=== PATIENT | male | born 1950 | race Two or more races ===

== ENCOUNTER 2023-02-20 03:50 | Inpatient (IN) | payer BC ==
[~2023-02-20] VITALS: Ht 180.3 cm; Wt 117.6 kg
[2023-02-20] VITALS (9 sets, daily range): BP systolic 124–130; BP diastolic 67–80; PULSE 79–96; RESP 18–21; TEMP 98.1–98.8; O2SAT 92–98
[2023-02-20] MEDS ORDERED: ACETAMINOPHEN 325 MG TAB PO PRN (06:15)
[2023-02-20] MEDS ORDERED: MORPHINE SULFATE INJ 2 MG/ml SYRG IV PRN (06:15)
[2023-02-20] MEDS ORDERED: IPRATROPIUM BROM 0.5 MG/2.5ML INH SOL NEB PRN (06:15)
[2023-02-20] MEDS ORDERED: DOCUSATE SOD 100 MG CAP PO PRN (06:15)
[2023-02-20] MEDS ORDERED: ONDANSETRON HCL 4 MG/2 ML VIAL IV PRN (06:15)
[2023-02-20] MEDS ORDERED: NITROGLYCERIN 0.4 MG SL TAB SL PRN (06:15)
[2023-02-20] MEDS ORDERED: SODIUM CHLORIDE 0.9% 1,000 ML IV SCH (06:15)
[2023-02-20] MEDS ORDERED: ALBUTEROL MEDNEB 2.5 mg/3ml NEB NEB PRN (07:30)
[2023-02-20] MEDS ORDERED: HYDR25TA4 PO (07:56)
[2023-02-20] MEDS ORDERED: SPIR25TA8 PO (07:56)
[2023-02-20] MEDS ORDERED: ALLO300T2 PO (07:56)
[2023-02-20] MEDS ORDERED: METO-158 PO (07:56)
[2023-02-20] MEDS ORDERED: PANT1INJ3 IV (07:56)
[2023-02-20] MEDS ORDERED: PREG75CA PO (07:56)
[2023-02-20] MEDS: cefTRIAXone 1GM/50ML D5W 50 ML IV SCH (08:31)
[2023-02-20] MEDS: chlordiazePOXIDE HCL 25 MG CAP PO PRN ×2 (08:32→17:48)
[2023-02-20] MEDS: METOPROLOL TARTRATE 50 MG TAB PO SCH (08:34)
[2023-02-20] MEDS: PANTOPRAZOLE 40 MG/10 ML VIAL INJ IV SCH (08:36)
[2023-02-20] MEDS ORDERED: methylPREDNISolone SOD SUCC 40 MG/ML VL IV SCH (10:00)
[2023-02-20] MEDS: AZITHROMYCIN 500MG/ 250ML 250 ML IV SCH (11:23)
[2023-02-20 11:39] LABS: Potassium 3.7 mmol/L (3.5-5.1)
[2023-02-20 11:41] LABS: Calcium 8.7 mg/dL (8.5-10.1)
[2023-02-20 11:46] LABS: BUN/Creatinine Ratio 9.1 (10.0-20.0)
[2023-02-20 11:48] LABS: Phosphorus 2.9 mg/dL (2.4-5.1)
[2023-02-20] MEDS: FOLIC ACID 1 MG, MULTIPLE VITAMIN 10 ML, MAGNESIUM SULF SDV 50% 8 MEQ, THIAMINE INJ 100... INJ SCH ×10 (12:00→13:43)
[2023-02-20 12:33] LABS: Magnesium 1.2 mg/dL (1.6-2.6)
[2023-02-20] MEDS ORDERED: ALBUTEROL MEDNEB 2.5 mg/3ml NEB NEB SCH (12:57)
[2023-02-20] MEDS ORDERED: IPRATROPIUM BROM 0.5 MG/2.5ML INH SOL NEB SCH (12:57)
[2023-02-20] MEDS: SODIUM CHLORIDE 0.9% 1,000 ML IV SCH (13:00)
[2023-02-20] MEDS: GABAPENTIN 300 MG CAP PO SCH ×2 (13:44→20:57)
[2023-02-20] MEDS: NICOTINE 14 MG/24HR TOPICAL PATCH TD SCH (13:45)
[2023-02-20] MEDS ORDERED: GABAPENTIN 300 MG CAP PO SCH (14:00)
[2023-02-20] MEDS ORDERED: ENOXAPARIN SOD 40 MG/0.4 ML SYRINGE SC SCH (15:00)
[2023-02-20] MEDS: methylPREDNISolone SOD SUCC 40 MG/ML VL IV SCH (17:52)
[2023-02-20] MEDS: IPRATROPIUM BROM 0.5 MG/2.5ML INH SOL NEB SCH ×2 (18:26→23:54)
[2023-02-20] MEDS: ALBUTEROL MEDNEB 2.5 mg/3ml NEB NEB SCH ×2 (18:27→23:54)
[2023-02-20] MEDS: traMADol HCL 50 MG TAB PO PRN (20:57)
[2023-02-21] VITALS (13 sets, daily range): BP systolic 113–138; BP diastolic 59–78; PULSE 75–109; RESP 18–20; TEMP 97.9–98.9; O2SAT 90–100
[2023-02-21] MEDS: chlordiazePOXIDE HCL 25 MG CAP PO PRN (01:06)
[2023-02-21] MEDS: methylPREDNISolone SOD SUCC 40 MG/ML VL IV SCH ×3 (01:06→22:06)
[2023-02-21] MEDS: GABAPENTIN 300 MG CAP PO SCH ×4 (01:06→20:44)
[2023-02-21] MEDS: SODIUM CHLORIDE 0.9% 1,000 ML IV SCH (03:18)
[2023-02-21 04:33] LABS: Basophils # (auto) 0 10 ^3/uL (0-0.2); Basophils % (auto) 0.3 % (0.0-2.0); Eosinophils # (auto) 0 10 ^3/uL (0-0.8); Hematocrit 33.9 % (41.0-53.0); Hemoglobin 11.5 g/dL (13.5-17.5); Lymphocytes # (auto) 0.7 10 ^3/uL (0.4-5.4); Lymphocytes % (auto) 8.3 % (10.0-50.0); Mean Corpuscular Hemoglobin 30.2 pg (28.0-32.0); Mean Corpuscular Hgb Conc. 33.9 g/dL (32.0-36.0); Mean Corpuscular Volume 89.1 fL (80.0-100.0); Monocytes # (auto) 0.5 10 ^3/uL (0-1.3); Monocytes % (auto) 6.7 % (0.0-12.0); Neutrophils # (auto) 6.8 10 ^3/uL (1.6-8.6); Neutrophils % (auto) 84.7 % (37.0-80.0); Red Cell Distribution Width 18.1 % (11.8-14.3)
[2023-02-21 04:47] LABS: Chloride 102 mmol/L (98-107); Potassium 3.8 mmol/L (3.5-5.1); Sodium 135 mmol/L (136-145)
[2023-02-21 04:48] LABS: Anion Gap 7 (5-15); Calcium 8.7 mg/dL (8.7-10.4); Carbon Dioxide 26 mmol/L (20-30)
[2023-02-21 04:53] LABS: BUN/Creatinine Ratio 13.6 (10.0-20.0); Blood Urea Nitrogen 8 mg/dL (9-23); Glucose 138 mg/dL (74-106)
[2023-02-21 05:08] LABS: INR 1.21 (0.9-1.15); Partial Thromboplastin Time 34.4 SEC (24.5-34.5); Prothrombin Time 12.5 sec (9.3-11.8)
[2023-02-21] MEDS: ALBUTEROL MEDNEB 2.5 mg/3ml NEB NEB SCH ×3 (06:08→19:37)
[2023-02-21] MEDS: IPRATROPIUM BROM 0.5 MG/2.5ML INH SOL NEB SCH ×3 (06:08→19:37)
[2023-02-21] MEDS: cefTRIAXone 1GM/50ML D5W 50 ML IV SCH (09:03)
[2023-02-21] MEDS: METOPROLOL TARTRATE 50 MG TAB PO SCH (09:56)
[2023-02-21] MEDS: NICOTINE 14 MG/24HR TOPICAL PATCH TD SCH (09:57)
[2023-02-21] MEDS: PANTOPRAZOLE 40 MG/10 ML VIAL INJ IV SCH (10:00)
[2023-02-21] MEDS: AZITHROMYCIN 500MG/ 250ML 250 ML IV SCH (10:09)
[2023-02-21] MEDS: traMADol HCL 50 MG TAB PO PRN (10:57)
[2023-02-21] MEDS: FOLIC ACID 1 MG, MULTIPLE VITAMIN 10 ML, MAGNESIUM SULF SDV 50% 8 MEQ, THIAMINE INJ 100... INJ SCH ×5 (12:03)
[2023-02-21] MEDS: DOXYCYCLINE 100 MG TAB/CAP PO SCH (22:06)
[2023-02-22] VITALS (13 sets, daily range): BP systolic 123–128; BP diastolic 72–76; PULSE 77–98; RESP 16–20; TEMP 97.6–98.3; O2SAT 93–99
[2023-02-22] MEDS: ALBUTEROL MEDNEB 2.5 mg/3ml NEB NEB SCH ×3 (00:11→11:38)
[2023-02-22] MEDS: IPRATROPIUM BROM 0.5 MG/2.5ML INH SOL NEB SCH ×4 (00:11→18:00)
[2023-02-22] MEDS: chlordiazePOXIDE HCL 25 MG CAP PO PRN ×2 (00:34→09:13)
[2023-02-22] MEDS: GABAPENTIN 300 MG CAP PO SCH ×3 (01:47→14:56)
[2023-02-22 05:47] LABS: Hemoglobin 11.7 g/dL (13.5-17.5); Mean Corpuscular Hemoglobin 29.8 pg (28.0-32.0); Red Blood Cells 3.91 10^6/uL (4.5-5.90); White Blood Cell 8.8 10^3/uL (4.4-10.8)
[2023-02-22 05:58] LABS: Anion Gap 6 (5-15); Calcium 8.9 mg/dL (8.7-10.4); Carbon Dioxide 26 mmol/L (20-30); Chloride 105 mmol/L (98-107); Potassium 4.2 mmol/L (3.5-5.1); Sodium 137 mmol/L (136-145)
[2023-02-22 06:04] LABS: BUN/Creatinine Ratio 21.6 (10.0-20.0); Blood Urea Nitrogen 16 mg/dL (9-23); Glucose 137 mg/dL (74-106)
[2023-02-22 06:34] LABS: Basophils # (auto) 0 10 ^3/uL (0-0.2); Eosinophils # (auto) 0 10 ^3/uL (0-0.8); Hematocrit 34.8 % (41.0-53.0); Lymphocytes # (auto) 0.6 10 ^3/uL (0.4-5.4); Lymphocytes % (auto) 6.7 % (10.0-50.0); Mean Corpuscular Hgb Conc. 33.5 g/dL (32.0-36.0); Monocytes # (auto) 0.5 10 ^3/uL (0-1.3); Neutrophils # (auto) 7.6 10 ^3/uL (1.6-8.6); Neutrophils % (auto) 87.3 % (37.0-80.0); Red Cell Distribution Width 18.5 % (11.8-14.3)
[2023-02-22] MEDS: DOXYCYCLINE 100 MG TAB/CAP PO SCH (09:11)
[2023-02-22] MEDS: HYDROcodone-ACET 5/325MG TAB PO PRN ×2 (09:11→15:01)
[2023-02-22] MEDS: METOPROLOL TARTRATE 50 MG TAB PO SCH (09:13)
[2023-02-22] MEDS: methylPREDNISolone SOD SUCC 40 MG/ML VL IV SCH (09:14)
[2023-02-22] MEDS: NICOTINE 14 MG/24HR TOPICAL PATCH TD SCH (09:15)
[2023-02-22] MEDS ORDERED: PANTOPRAZOLE 40 MG TAB PO SCH (10:00)
[2023-02-22] MEDS ORDERED: MULTIPLE VITAMIN TAB PO ONE (12:00)
[2023-02-22 15:04] LABS: COVID19 ANTIGEN SOFIA FIA NEGATIVE (NEGATIVE)
[2023-02-22] MEDS ORDERED: GABA-1250 PO (17:22)
[2023-02-22] MEDS ORDERED: PRED20TA2 PO (17:22)
[2023-02-22] MEDS ORDERED: IPRA0.00 IN (17:22)
[2023-02-22] MEDS ORDERED: DOXY-448 PO (17:22)
[2023-02-22] MEDS ORDERED: PANT40T PO (17:22)
[2023-02-23] MEDS ORDERED: MULTIPLE VITAMIN TAB PO SCH (10:00)
== END 2023-02-22 18:20 | disposition home health service (06) | DRG 190 ==
LOC: UNDOADMIN 05:45 → TELE-CENTR 05:45
PROVIDERS: ADMIT Nurse Practitioner Family; ATTEND Hospitalist
DX: J44.1 Chronic obstructive pulmonary disease with (acute) exacerbation (principal); J18.9 Pneumonia, unspecified organism; J96.10 Chronic respiratory failure, unspecified whether with hypoxia or hypercapnia; F10.239 Alcohol dependence with withdrawal, unspecified; J44.0 Chronic obstructive pulmonary disease with (acute) lower respiratory infection; I11.0 Hypertensive heart disease with heart failure; Z20.822 Contact with and (suspected) exposure to COVID-19; F17.210 Nicotine dependence, cigarettes, uncomplicated; I50.9 Heart failure, unspecified; Z99.81 Dependence on supplemental oxygen; Z79.899 Other long term (current) drug therapy; Z80.0 Family history of malignant neoplasm of digestive organs; Z82.0 Family history of epilepsy and other diseases of the nervous system; Z71.6 Tobacco abuse counseling
CPT/HCPCS: 36415; 80048; 80069; 83735; 85025; 85049; 85610; 85730; 87426; 94640; 97110; 97116; 97163; 97530; C9113; G0378; J0696

== ENCOUNTER 2023-06-28 11:11 | Inpatient (IN) | payer BC ==
[~2023-06-28] VITALS: Ht 177.8 cm; Wt 120.9 kg
[~2023-06-28 11:11] MED LIST: ALLO300T2 PO; DOXY-448 PO; GABA-1250 PO; IPRA0.00 IN; METO-158 PO; PANT40T PO; PRED20TA2 PO; PREG75CA PO; SPIR25TA8 PO
[2023-06-28] MEDS: dilTIAZem 25 MG/5 ML VIAL IV ONE (11:28)
[2023-06-28] MEDS ORDERED: PANTOPRAZOLE 40mg/50ML NS AE 50 ML IV ONE (11:30)
[2023-06-28 11:44] LABS: Basophils # (auto) 0.1 10 ^3/uL (0-0.2); Eosinophils # (auto) 0.1 10 ^3/uL (0-0.8); Hemoglobin 10.5 g/dL (13.5-17.5); Nucleated Red Blood Cells % 0.1 %; Red Cell Distribution Width 18.8 % (11.8-14.3)
[2023-06-28 11:46] LABS: Basophils % (auto) 1.4 % (0.0-2.0); Eosinophils % (auto) 0.9 % (0.0-7.0); Hematocrit 32.1 % (41.0-53.0); Lymphocytes # (auto) 1.3 10 ^3/uL (0.4-5.4); Lymphocytes % (auto) 14.1 % (10.0-50.0); Mean Corpuscular Hemoglobin 27.3 pg (28.0-32.0); Mean Corpuscular Hgb Conc. 32.6 g/dL (32.0-36.0); Mean Corpuscular Volume 83.7 fL (80.0-100.0); Monocytes # (auto) 1.3 10 ^3/uL (0-1.3); Neutrophils # (auto) 6.5 10 ^3/uL (1.6-8.6); Neutrophils % (auto) 69.6 % (37.0-80.0); Red Blood Cells 3.84 10^6/uL (4.5-5.90); White Blood Cell 9.4 10^3/uL (4.4-10.8)
[2023-06-28 11:52] LABS: Base Excess -1.9 mmol/L (-2.0-2.0)
[2023-06-28 12:00] VITALS: PULSE 126; RESP 18; O2SAT 97
[2023-06-28] MEDS ORDERED: dilTIAZem 125mg/125ml BAG KIT 125 ML IV ONE (12:00)
[2023-06-28] MEDS: SODIUM CHLORIDE 0.9% 500 ML IV ONE ×2 (12:00→23:00)
[2023-06-28 12:01] LABS: Alanine Aminotransferase 13 U/L (7-40); Albumin 3.5 g/dL (3.2-4.8); Alkaline Phosphatase 61 U/L (46-116); Anion Gap 6 (5-15); Aspartate Aminotransferase 28 U/L (13-40); BUN/Creatinine Ratio 34.6 (10.0-20.0); Bilirubin, Direct 0.8 mg/dL (<0.3); Bilirubin, Total 1.4 mg/dL (0.2-1.0); Blood Urea Nitrogen 28 mg/dL (9-23); Calcium 8.5 mg/dL (8.5-10.1); Carbon Dioxide 24 mmol/L (20-30); Chloride 108 mmol/L (98-107); Glucose 125 mg/dL (74-106); Potassium 4.5 mmol/L (3.5-5.1); Sodium 138 mmol/L (136-145); Total Protein 5.5 g/dL (5.7-8.2)
[2023-06-28 12:09] LABS: Acetaminophen < 2.0 UG/ML (10.0-20.0); Lipase 82 U/L (12-53)
[2023-06-28 12:10] LABS: Salicylate < 3.0 mg/dL (2.8-20.0)
[2023-06-28 12:51] LABS: Free T3 3.09 pg/mL (2.3-4.2); Free T4 (Free Thyroxine) 1.02 ng/dL (0.89-1.76)
[2023-06-28] MEDS: ONDANSETRON HCL 4 MG/2 ML VIAL IV ONE (14:15)
[2023-06-28] MEDS: ONDANSETRON HCL 4 MG/2 ML VIAL ONE (14:17)
[2023-06-28] MEDS: OCTREOTIDE ACETATE 100 MCG in SODIUM CHL 0.9% 50 ML IV ONE (14:25)
[2023-06-28 14:49] LABS: INR 1.4 (0.9-1.15); Prothrombin Time 14.4 sec (9.3-11.8)
[2023-06-28] MEDS ORDERED: NITROGLYCERIN 0.4 MG SL TAB SL PRN (15:00)
[2023-06-28] MEDS: PANTOPRAZOLE 40mg/50ML NS AE 50 ML IV SCH (15:00)
[2023-06-28] MEDS ORDERED: MORPHINE SULFATE INJ 2 MG/ml SYRG IV PRN ×2 (15:00)
[2023-06-28] MEDS: OCTREOTIDE ACETATE 500 MCG in SODIUM CHL 0.9% 99 ML IV SCH (15:13)
[2023-06-28] MEDS: PANTOPRAZOLE 80 MG in SODIUM CHL 0.9% 100 ML IV ONE (15:13)
[2023-06-28 15:19] LABS: Hematocrit 31.3 % (41.0-53.0); Hemoglobin 10.3 g/dL (13.5-17.5)
[2023-06-28] MEDS: dilTIAZem 125mg/125ml BAG KIT 125 ML IV SCH (15:26)
[2023-06-28] MEDS: SODIUM CHLORIDE 0.9% 1,000 ML IV ONE (18:40)
[2023-06-28] MEDS: levoFLOXacin 750MG 150 ML IV ONE (18:40)
[2023-06-28 21:17] LABS: Hematocrit 30.5 % (41.0-53.0); Hemoglobin 9.8 g/dL (13.5-17.5)
[2023-06-28 22:10] VITALS: PULSE 138; RESP 21; O2SAT 89
[2023-06-28] MEDS: NOREPINEPHRINE 8 MG/250ML KIT 250 ML IV SCH (22:57)
[2023-06-28] MEDS: NOREPINEPHRINE 8 MG/250ML KIT 250 ML IV ONE (23:00)
[2023-06-28] MEDS: OCTREOTIDE ACETATE 500 MCG/ML VL ONE (23:00)
[2023-06-28 23:03] LABS: Hemoglobin 8.4 g/dL (13.5-17.5)
[2023-06-28] MEDS: ONDANSETRON HCL 4 MG/2 ML VIAL IV PRN (23:24)
[2023-06-28] MEDS: VASOPRESSIN 20 UNIT/ML ONE (23:46)
[2023-06-29] VITALS (39 sets, daily range): BP systolic 91–163; BP diastolic 41–97; PULSE 116–130; RESP 13–21; TEMP 97.3–98.8; O2SAT 91–99
[2023-06-29] MEDS: ALBUMIN 25% 100 ML IV ONE (00:02)
[2023-06-29] MEDS: METOCLOPRAMIDE HCL 5MG/ml INJ 2ml VIAL IV SCH (00:02)
[2023-06-29] MEDS: SODIUM CHLORIDE 0.9% 1,000 ML IV ONE (00:02)
[2023-06-29] MEDS: VASOPRESSIN 20 UNITS in SODIUM CHL 0.9% 99 ML IV SCH (00:48)
[2023-06-29] MEDS: D5W/SOD CHLO 0.9% 1,000 ML IV SCH (01:00)
[2023-06-29] MEDS: METOCLOPRAMIDE HCL 5MG/ml INJ 2ml VIAL IV PRN (01:24)
[2023-06-29 04:43] LABS: Hemoglobin 7.5 g/dL (13.5-17.5)
[2023-06-29 04:46] LABS: Hematocrit 23.2 % (41.0-53.0); Mean Corpuscular Hgb Conc. 32.2 g/dL (32.0-36.0); Mean Corpuscular Volume 83.8 fL (80.0-100.0); Red Blood Cells 2.77 10^6/uL (4.5-5.90); Red Cell Distribution Width 19.2 % (11.8-14.3); White Blood Cell 27.8 10^3/uL (4.4-10.8)
[2023-06-29] MEDS: PHENYLEPHRINE IV 250 ML IV SCH (04:49)
[2023-06-29] MEDS: METOPROLOL TARTRATE 1MG/1ML-5ML VIAL IV ONE (04:49)
[2023-06-29] MEDS: PHENYLEPHRINE IV 250 ML IV ONE (04:50)
[2023-06-29 05:01] LABS: Alanine Aminotransferase 11 U/L (7-40); Albumin 3.1 g/dL (3.2-4.8); Alkaline Phosphatase 41 U/L (46-116); Anion Gap 8 (5-15); Aspartate Aminotransferase 28 U/L (13-40); BUN/Creatinine Ratio 37.3 (10.0-20.0); Bilirubin, Total 2.5 mg/dL (0.2-1.0); Blood Urea Nitrogen 31 mg/dL (9-23); Calcium 7.7 mg/dL (8.7-10.4); Carbon Dioxide 21 mmol/L (20-30); Chloride 111 mmol/L (98-107); Glucose 187 mg/dL (74-106); Potassium 4.8 mmol/L (3.5-5.1); Sodium 140 mmol/L (136-145)
[2023-06-29 05:03] LABS: Band Neutrophils % (manual) 0; Basophils % (manual) 0 (0.0-2.0); Blast Cells 0; Eosinophils % (manual) 0 (0-7); Metamyelocytes % 0; Myelocytes % 0; Promyelocytes % 0; Reactive Lymphocytes 0
[2023-06-29 06:33] LABS: Lymphocytes % (manual) 8 (10.0-50.0); Monocytes % (manual) 3 (0-12); Platelet Estimate Adequate
[2023-06-29 06:36] LABS: Urine Bacteria NONE SEEN /hpf (None Seen); Urine Blood Negative /uL (Negative); Urine Clarity Clear (Clear); Urine Color Yellow (Yellow); Urine Hyaline Cast FEW /lpf (0 - 2); Urine Protein, UAD TRACE (Negative); Urine Specific Gravity 1.021 (1.001-1.035); Urine WBC 1 /hpf (0 - 3)
[2023-06-29 06:46] LABS: Amphetamine Screen, Urine Neg (NEGATIVE); Barbiturate Scree,Urine Neg (NEGATIVE); Benzodiazephine Screen, Urine Neg (NEGATIVE); Cannabinoid Screen, Urine Neg (NEGATIVE); Cocaine Screen, Urine Neg (NEGATIVE); Opiate Scree,Urine Neg (NEGATIVE); Phencyclidine Screen, Urine Neg (NEGATIVE)
[2023-06-29] MEDS: PIPERACILLIN-TAZOB 3.375GM 100 ML IV SCH (06:54)
[2023-06-29 09:10] LABS: Hematocrit 23.7 % (41.0-53.0); Hemoglobin 7.7 g/dL (13.5-17.5)
[2023-06-29] MEDS: LORazepam 2MG/ML-1ML VIAL IV PRN (09:29)
[2023-06-29] MEDS ORDERED: MIDAZOLAM HCL 2MG/2ML 2ml VIAL (1mg/ml) ONE (16:36)
[2023-06-29] MEDS ORDERED: PHENYLEPHRINE HCL 10 MG/ML VL IV ONE (16:40)
[2023-06-29] MEDS ORDERED: KETAMINE 50mg/ML 10ml Vial 10 ML ONE (16:49)
[2023-06-29] MEDS ORDERED: ONDANSETRON HCL 4 MG/2 ML VIAL ONE (17:22)
[2023-06-29] MEDS ORDERED: ONDANSETRON HCL 4 MG/2 ML VIAL IV PRN (17:45)
[2023-06-29] MEDS ORDERED: LIDOCAINE HCL 100 MG/5ML (2%) SYRG INJ IV ONE (17:52)
[2023-06-29] MEDS ORDERED: PROPOFOL 10 MG/ML 20 ML IV ONE (17:52)
[2023-06-29 19:27] LABS: Basophils # (auto) 0.1 10 ^3/uL (0-0.2); Basophils % (auto) 1.2 % (0.0-2.0); Eosinophils # (auto) 0.2 10 ^3/uL (0-0.8); Lymphocytes # (auto) 1.5 10 ^3/uL (0.4-5.4); Monocytes # (auto) 1.1 10 ^3/uL (0-1.3); Neutrophils # (auto) 8.7 10 ^3/uL (1.6-8.6); White Blood Cell 11.6 10^3/uL (4.4-10.8)
[2023-06-29 19:29] LABS: Eosinophils % (auto) 1.4 % (0.0-7.0); Hematocrit 23.8 % (41.0-53.0); Hemoglobin 7.8 g/dL (13.5-17.5); Lymphocytes % (auto) 13.1 % (10.0-50.0); Mean Corpuscular Hemoglobin 27.7 pg (28.0-32.0); Mean Corpuscular Hgb Conc. 32.8 g/dL (32.0-36.0); Mean Corpuscular Volume 84.6 fL (80.0-100.0); Monocytes % (auto) 9.5 % (0.0-12.0); Neutrophils % (auto) 74.8 % (37.0-80.0); Nucleated Red Blood Cells % 0.1 %; Red Blood Cells 2.81 10^6/uL (4.5-5.90); Red Cell Distribution Width 18.1 % (11.8-14.3)
[2023-06-29 19:48] LABS: Alanine Aminotransferase 10 U/L (7-40); Alkaline Phosphatase 39 U/L (46-116); Anion Gap 5 (5-15); Aspartate Aminotransferase 30 U/L (13-40); BUN/Creatinine Ratio 30.3 (10.0-20.0); Blood Urea Nitrogen 20 mg/dL (9-23); Calcium 7.6 mg/dL (8.7-10.4); Carbon Dioxide 24 mmol/L (20-30); Chloride 114 mmol/L (98-107); Glucose 139 mg/dL (74-106); Sodium 143 mmol/L (136-145)
[2023-06-29 19:49] LABS: Albumin 3.1 g/dL (3.2-4.8); Bilirubin, Total 2.1 mg/dL (0.2-1.0); Total Protein 4.9 g/dL (5.7-8.2)
[2023-06-30] VITALS (97 sets, daily range): BP systolic 92–171; BP diastolic 39–138; PULSE 114–140; RESP 13–31; TEMP 98.1–99.3; O2SAT 76–99
[2023-06-30 06:19] LABS: Basophils # (auto) 0 10 ^3/uL (0-0.2); Hemoglobin 7.9 g/dL (13.5-17.5); Monocytes # (auto) 0.6 10 ^3/uL (0-1.3); Nucleated Red Blood Cells % 0.1 %
[2023-06-30 06:21] LABS: Basophils % (auto) 0.5 % (0.0-2.0); Eosinophils # (auto) 0.1 10 ^3/uL (0-0.8); Eosinophils % (auto) 2.5 % (0.0-7.0); Hematocrit 23.6 % (41.0-53.0); Lymphocytes % (auto) 18.4 % (10.0-50.0); Mean Corpuscular Hemoglobin 29.1 pg (28.0-32.0); Mean Corpuscular Hgb Conc. 33.6 g/dL (32.0-36.0); Mean Corpuscular Volume 86.4 fL (80.0-100.0); Monocytes % (auto) 10.8 % (0.0-12.0); Neutrophils # (auto) 3.8 10 ^3/uL (1.6-8.6); Neutrophils % (auto) 67.8 % (37.0-80.0); Red Blood Cells 2.73 10^6/uL (4.5-5.90); Red Cell Distribution Width 17.3 % (11.8-14.3); White Blood Cell 5.6 10^3/uL (4.4-10.8)
[2023-06-30 06:37] LABS: Chloride 113 mmol/L (98-107); Potassium 3.8 mmol/L (3.5-5.1); Sodium 143 mmol/L (136-145)
[2023-06-30 06:38] LABS: Anion Gap 4 (5-15); Calcium 7.5 mg/dL (8.7-10.4); Carbon Dioxide 26 mmol/L (20-30)
[2023-06-30 06:43] LABS: BUN/Creatinine Ratio 22.4 (10.0-20.0); Blood Urea Nitrogen 13 mg/dL (9-23); Glucose 114 mg/dL (74-106)
[2023-06-30 07:21] LABS: Platelet Estimate Decreased
[2023-06-30] MEDS ORDERED: HYDR25TA4 PO (17:53)
[2023-06-30] MEDS: chlordiazePOXIDE HCL 5 MG CAP PO SCH (18:14)
[2023-06-30] MEDS: FUROSEMIDE 20 MG/2 ML VIAL IV ONE (18:14)
[2023-06-30] MEDS: FOLIC ACID 1 MG, MAGNESIUM SULF SDV 50% 8 MEQ, MULTIPLE VITAMIN 10 ML, THIAMINE INJ 100... INJ SCH (18:47)
[2023-06-30 19:59] LABS: % Iron Saturation 34.1 % (20-55)
[2023-06-30] MEDS: METOPROLOL TARTRATE 1MG/1ML-5ML VIAL IV ONE (20:50)
[2023-06-30] MEDS: PANTOPRAZOLE 40 MG/10 ML VIAL INJ IV SCH (20:53)
[2023-07-01] VITALS (31 sets, daily range): BP systolic 96–135; BP diastolic 45–91; PULSE 65–139; RESP 14–23; TEMP 97.8–99.3; O2SAT 91–98
[2023-07-01] MEDS: METOPROLOL TARTRATE 1MG/1ML-5ML VIAL IV PRN ×2 (02:25→10:16)
[2023-07-01 05:51] LABS: Basophils # (auto) 0 10 ^3/uL (0-0.2); Basophils % (auto) 0.7 % (0.0-2.0); Eosinophils # (auto) 0.2 10 ^3/uL (0-0.8); Eosinophils % (auto) 2.9 % (0.0-7.0); Hematocrit 31.2 % (41.0-53.0); Hemoglobin 10.4 g/dL (13.5-17.5); Lymphocytes % (auto) 16.1 % (10.0-50.0); Mean Corpuscular Hemoglobin 28.8 pg (28.0-32.0); Mean Corpuscular Hgb Conc. 33.3 g/dL (32.0-36.0); Mean Corpuscular Volume 86.4 fL (80.0-100.0); Monocytes # (auto) 0.5 10 ^3/uL (0-1.3); Neutrophils # (auto) 4.3 10 ^3/uL (1.6-8.6); Neutrophils % (auto) 71.3 % (37.0-80.0); Nucleated Red Blood Cells % 0.1 %; Red Blood Cells 3.61 10^6/uL (4.5-5.90); Red Cell Distribution Width 16.9 % (11.8-14.3); White Blood Cell 6.1 10^3/uL (4.4-10.8)
[2023-07-01 06:09] LABS: Alanine Aminotransferase 14 U/L (7-40); Albumin 3.1 g/dL (3.2-4.8); Alkaline Phosphatase 46 U/L (46-116); Anion Gap 4 (5-15); Aspartate Aminotransferase 39 U/L (13-40); BUN/Creatinine Ratio 13.6 (10.0-20.0); Blood Urea Nitrogen 8 mg/dL (9-23); Calcium 7.7 mg/dL (8.7-10.4); Carbon Dioxide 27 mmol/L (20-30); Chloride 109 mmol/L (98-107); Glucose 99 mg/dL (74-106); Magnesium 1.3 mg/dL (1.6-2.6); Potassium 3.4 mmol/L (3.5-5.1); Sodium 140 mmol/L (136-145)
[2023-07-01] MEDS: THIAMINE 100mg/ml INJ (200mg/2ml VIAL) IV SCH (10:16)
[2023-07-01] MEDS: cefTRIAXone 1GM/50ML D5W 50 ML IV SCH (10:17)
[2023-07-01] MEDS: ALBUTEROL SULF 2.5 MG/0.5ML(0.5%) NEB SOLN NEB SCH (10:46)
[2023-07-01] MEDS: IPRATROPIUM BROM 0.5 MG/2.5ML INH SOL NEB SCH (10:46)
[2023-07-01] MEDS ORDERED: IRON SUCROSE COMPLEX 100 ML IV SCH (12:00)
[2023-07-01] MEDS: MAGNESIUM SULFATE 1GM/100ML 100 ML IV ONE (17:10)
[2023-07-01] MEDS: POTASSIUM CHL 20 Meq TABLET PO ONE (17:10)
[2023-07-01] MEDS: MAGNESIUM SULFATE 1GM/100ML 100 ML IV SCH (17:10)
[2023-07-01] MEDS: PREGABALIN CAPSULE 75 MG CAP PO SCH (20:34)
[2023-07-01] MEDS: PROPRANOLOL HCL 20 MG TAB PO SCH (20:34)
[2023-07-01] MEDS: GABAPENTIN 300 MG CAP PO SCH (20:35)
[2023-07-02] VITALS (7 sets, daily range): BP systolic 102–126; BP diastolic 53–67; PULSE 59–125; RESP 18–20; TEMP 98–99; O2SAT 91–95
[2023-07-02 05:51] LABS: Hematocrit 31.2 % (41.0-53.0); Hemoglobin 10.4 g/dL (13.5-17.5)
[2023-07-02 05:59] LABS: Chloride 107 mmol/L (98-107); Potassium 3.8 mmol/L (3.5-5.1); Sodium 137 mmol/L (136-145)
[2023-07-02 06:00] LABS: Anion Gap 4 (5-15); Carbon Dioxide 26 mmol/L (20-30)
[2023-07-02 06:01] LABS: Calcium 8.1 mg/dL (8.7-10.4)
[2023-07-02 06:05] LABS: Glucose 89 mg/dL (74-106)
[2023-07-02 06:06] LABS: BUN/Creatinine Ratio 11.3 (10.0-20.0); Blood Urea Nitrogen 6 mg/dL (9-23); Magnesium 1.9 mg/dL (1.6-2.6)
[2023-07-02] MEDS: ALLOPURINOL 300 MG TAB PO SCH (10:00)
[2023-07-02] MEDS: NICOTINE 21MG/24 HR TOPICAL PATCH TD SCH (10:06)
[2023-07-03] VITALS (8 sets, daily range): BP systolic 90–125; BP diastolic 47–71; PULSE 64–125; RESP 18–20; TEMP 98–99.8; O2SAT 90–97
[2023-07-03] MEDS: SODIUM CHLORIDE 0.9% 500 ML IV ONE (01:25)
[2023-07-03 01:44] LABS: Basophils # (auto) 0.1 10 ^3/uL (0-0.2); Basophils % (auto) 0.5 % (0.0-2.0); Eosinophils # (auto) 0.3 10 ^3/uL (0-0.8); Eosinophils % (auto) 2.6 % (0.0-7.0); Hematocrit 31.7 % (41.0-53.0); Hemoglobin 10.4 g/dL (13.5-17.5); Lymphocytes # (auto) 1.4 10 ^3/uL (0.4-5.4); Lymphocytes % (auto) 14.3 % (10.0-50.0); Mean Corpuscular Hemoglobin 28.9 pg (28.0-32.0); Mean Corpuscular Hgb Conc. 32.9 g/dL (32.0-36.0); Mean Corpuscular Volume 87.9 fL (80.0-100.0); Monocytes # (auto) 1.2 10 ^3/uL (0-1.3); Monocytes % (auto) 12.2 % (0.0-12.0); Neutrophils # (auto) 7.1 10 ^3/uL (1.6-8.6); Neutrophils % (auto) 70.4 % (37.0-80.0); Nucleated Red Blood Cells % 0.2 %; Red Cell Distribution Width 17.3 % (11.8-14.3); White Blood Cell 10.1 10^3/uL (4.4-10.8)
[2023-07-03 01:59] LABS: Alanine Aminotransferase 11 U/L (7-40); Alkaline Phosphatase 53 U/L (46-116); Anion Gap 6 (5-15); Aspartate Aminotransferase 28 U/L (13-40); BUN/Creatinine Ratio 10.3 (10.0-20.0); Blood Urea Nitrogen 6 mg/dL (9-23); Calcium 8.3 mg/dL (8.7-10.4); Carbon Dioxide 27 mmol/L (20-30); Chloride 107 mmol/L (98-107); Glucose 93 mg/dL (74-106); Magnesium 1.6 mg/dL (1.6-2.6); Potassium 3.8 mmol/L (3.5-5.1); Sodium 140 mmol/L (136-145)
[2023-07-03 02:00] LABS: Bilirubin, Total 1.4 mg/dL (0.2-1.0); Total Protein 4.8 g/dL (5.7-8.2)
[2023-07-03 06:54] LABS: Basophils # (auto) 0.1 10 ^3/uL (0-0.2); Basophils % (auto) 0.7 % (0.0-2.0); Eosinophils # (auto) 0.2 10 ^3/uL (0-0.8); Hemoglobin 10.5 g/dL (13.5-17.5); Lymphocytes # (auto) 1.1 10 ^3/uL (0.4-5.4); Mean Corpuscular Hemoglobin 29.3 pg (28.0-32.0); Mean Corpuscular Hgb Conc. 32.9 g/dL (32.0-36.0); Mean Corpuscular Volume 88.9 fL (80.0-100.0); Monocytes # (auto) 1.2 10 ^3/uL (0-1.3); Monocytes % (auto) 13.4 % (0.0-12.0); Neutrophils # (auto) 6.5 10 ^3/uL (1.6-8.6); Neutrophils % (auto) 71.9 % (37.0-80.0); Nucleated Red Blood Cells % 0.1 %; Red Cell Distribution Width 17.2 % (11.8-14.3)
[2023-07-03 07:04] LABS: Chloride 108 mmol/L (98-107); Potassium 3.7 mmol/L (3.5-5.1); Sodium 139 mmol/L (136-145)
[2023-07-03 07:05] LABS: Anion Gap 4 (5-15); Carbon Dioxide 27 mmol/L (20-30)
[2023-07-03 07:10] LABS: BUN/Creatinine Ratio 10.2 (10.0-20.0); Blood Urea Nitrogen 6 mg/dL (9-23); Glucose 113 mg/dL (74-106)
[2023-07-03] MEDS: ALLOPURINOL 100 MG TAB PO SCH (10:21)
[2023-07-03] MEDS: MIDODRINE HCL 10 MG TAB PO SCH (21:43)
[2023-07-04] VITALS (10 sets, daily range): BP systolic 97–120; BP diastolic 45–77; PULSE 64–124; RESP 16–20; TEMP 98.1–99.8; O2SAT 64–95
[2023-07-04 00:14] LABS: Urine Bacteria NONE SEEN /hpf (None Seen); Urine Blood 1+ /uL (Negative); Urine Clarity Clear (Clear); Urine Color Yellow (Yellow); Urine Mucus FEW (None Seen); Urine Protein, UAD Negative (Negative); Urine Specific Gravity 1.015 (1.001-1.035); Urine Urobilinogen Normal (Negative); Urine WBC 4 /hpf (0 - 3)
[2023-07-04] MEDS ORDERED: PANT40T PO (10:49)
[2023-07-04] MEDS ORDERED: PROP1TAB53 PO (10:49)
[2023-07-04] MEDS ORDERED: GABA-1250 PO (10:49)
[2023-07-04] MEDS ORDERED: chlordiazePOXIDE HCL 5 MG CAP PO SCH (22:00)
== END 2023-07-04 20:44 | disposition home health service (06) | DRG 432 ==
LOC: ER 11:11 → EDBD 11:11 → TELE 14:55 → ICU WEST 06-29 18:43 → TELE-WESTW 07-01 17:40
PROVIDERS: ADMIT Hospitalist; ATTEND Hospitalist
PROC: 06HY33Z Insertion of Infusion Device into Lower Vein, Percutaneous Approach (ICD-10-PCS; 2023-06-28)
PROC: 06L38CZ Occlusion of Esophageal Vein with Extraluminal Device, Via Natural or Artificial Opening Endoscopic (ICD-10-PCS; 2023-06-29)
PROC: 30233N1 Transfusion of Nonautologous Red Blood Cells into Peripheral Vein, Percutaneous Approach (ICD-10-PCS; principal; 2023-06-29 16:35)
DX: K70.30 Alcoholic cirrhosis of liver without ascites (principal); I21.4 Non-ST elevation (NSTEMI) myocardial infarction; K29.21 Alcoholic gastritis with bleeding; I85.11 Secondary esophageal varices with bleeding; J18.9 Pneumonia, unspecified organism; J96.01 Acute respiratory failure with hypoxia; K85.90 Acute pancreatitis without necrosis or infection, unspecified; I47.10 Supraventricular tachycardia, unspecified; J44.0 Chronic obstructive pulmonary disease with (acute) lower respiratory infection; J44.1 Chronic obstructive pulmonary disease with (acute) exacerbation; D64.9 Anemia, unspecified; D69.6 Thrombocytopenia, unspecified; F17.200 Nicotine dependence, unspecified, uncomplicated; F10.229 Alcohol dependence with intoxication, unspecified; E78.5 Hyperlipidemia, unspecified; I10 Essential (primary) hypertension; E66.9 Obesity, unspecified; K31.89 Other diseases of stomach and duodenum; Z82.49 Family history of ischemic heart disease and other diseases of the circulatory system; Z80.0 Family history of malignant neoplasm of digestive organs; Z81.8 Family history of other mental and behavioral disorders; Z68.38 Body mass index [BMI] 38.0-38.9, adult
CPT/HCPCS: 36415; 36600; 71045; 71250; 74176; 80048; 80053; 80307; 80320; 80329; 81001; 82010; 82248; 82270; 82805; 82962; 83540; 83550; 83690; 83735; 83880; 84439; 84443; 84481; 84484; 85007; 85014; 85018; 85025; 85027; 85610; 86850; 86900; 86901; 86920; 87040; 87081; 87086; 93005; 93306; 94640; 96365; 96375; 97110; 97116; 97163; 97530; 99291; C9113; G0378; J1956; J2250; J2405; J2543; J2704; P9047

== ENCOUNTER 2024-03-14 06:08 | Inpatient (IN) | payer BC ==
[~2024-03-14] VITALS: Ht 177.8 cm; Wt 117.5 kg
[~2024-03-14 06:08] MED LIST changes: -DOXY-448 PO; -METO-158 PO; -PRED20TA2 PO; +PROP1TAB53 PO; -SPIR25TA8 PO
--- NOTE | 2024-03-14 06:32 | ECG ---
[facility] Test Date: 2024-03-14 Test Time: 06:11:49 Pat Name: MARKUS SAAVEDRA Department: er Room: 0290T Gender: M [employer] Operator: am : 1950 Requested By: MARIBEL YAÑEZ Order Number: [id number] Reading MD: Zeyad Lopez Measurements Intervals [place] Rate: 100 P: 0 W[place]: 0 QRS: -74 QRSD: 139 T: 44 QT: 412 QTc: 532 Interpretive Statements Atrial flutter Nonspecific IVCD with LAD Consider anterior infarct Baseline wander in lead(s) V2 Electronically Signed On 03-16-2024 8:24:54 PST by Zeyad Lopez Please click the below link to view image of tracing.
--- NOTE | 2024-03-14 06:53 | ED.PDOC ---
HPI Comments 73M BIBA w/ prior Hx of High Lipids and HTN which may be associated to the c/c of CP. EMS report the pt having CP/SOB since 0500 today w/ substernal nonradiating pain, which feels dull. EMS state the pt was wheezing on scene and was given a breathing trx as well as being 105 systolic en route. EMS note the pt did take aspirin at home. PMHx of COPD. SHx of Eye Sx. 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 Denies chills, fever, N/V/D or other associated symptoms, modifiers, or recent injuries at this time. Chief Complaint: Chest Pain Time Seen by MD: 06:20 Allergies: Coded Allergies: NO KNOWN ALLERGIES (Unverified , 02/20/23) Home Meds Active Scripts Propranolol HCl (Propranolol Hydrochloride) 20 Mg Tab, 20 MG PO TID, #90 TAB 1 Refill Prov:TRACI REINOSO MD 07/04/23 Pantoprazole Sodium Sesquihydr (Pantoprazole Sodium) 40 Mg Tab, 40 MG PO DAILY, #30 TAB Prov:TRACI REINOSO MD 07/04/23 Gabapentin (Gabapentin) 300 Mg Cap, 1 CAP PO TID, #60 CAP Prov:TRACI REINOSO MD 07/04/23 Ipratropium-Albuterol (Ipratropium [place]/Albut) 1 Pam Pam, 1 PAM IN TID, #30 ML Prov:TRACI REINOSO MD 02/22/23 Reported Medications Allopurinol (Allopurinol) 300 Mg Tab, 300 MG PO DAILY for 30 Days, MG 02/20/23 Pregabalin (Lyrica) 75 Mg Cap, 75 MG PO BID, CAP 02/20/23 Information Source: Patient, Emergency Med Personnel Mode of Arrival: EMS Severity: Moderate Timing: Minutes Duration: Since onset, Minutes Prehospital treatment: Breathing Tx Location: Substernal Radiation: No Radiation Quality: Other ("dull") Onset: At Rest Cardiac Risk Factors: Smoker, Hyperlipidemia, HTN PE Risk Factors: None History of: Similar pain in past Associated Signs and Symptoms: SOB Past Medical History PAST MEDICAL HISTORY: COPD, High Lipids, HTN Surgical History (Other): Eye Sx Family History Family History: Reviewed,noncontributory to illness, Unknown Social History Smoker: Cigarettes Alcohol: Sober (July 03) Drugs: Denies Drug Use Lives In: Home Constitutional: denies: chills, diaphoresis, fatigue, fever, malaise, sweats, weakness, others EENTM: denies: blurred vision, double vision, ear bleeding, ear discharge, ear drainage, ear pain, ear ringing, eye pain, eye redness, hearing loss, mouth pain, mouth swelling, nasal discharge, nose bleeding, nose congestion, nose pain, photophobia, tearing, throat pain, throat swelling, voice changes, others Respiratory: reports: SOB at rest, shortness of breath; denies: cough, hemoptysis, orthopnea, SOB with excertion, stridor, wheezing, others Cardiovascular: reports: chest pain; denies: dizzy spells, diaphoresis, Dyspnea on exertion, edema, irregular heart beat, left arm pain, lightheadedness, palpitations, PND, syncope, others Gastrointestinal: denies: abdomen distended, abdominal pain, blood streaked bowels, constipated, diarrhea, dysphagia, difficulty swallowing, hematemesis, melena, nausea, poor appetite, poor fluid intake, rectal bleeding, rectal pain, vomiting, others Genitourinary: denies: burning, dysuria, flank pain, frequency, hematuria, incontinence, penile discharge, penile sore, pain, testicle pain, testicle sw elling, urgency, others Neurological: denies: dizziness, fainting, headache, left sided numbness, left sided weakness, numbness, paresthesia, pre-existing deficit, right sided numbness, right sided weakness, seizure, speech problems, tingling, tremors, weakness, others Musculoskeletal: denies: back pain, gout, joint pain, joint swelling, muscle pain, muscle stiffness, neck pain, others Integumetry: denies: bruises, change in color, change in hair/nails, dryness, laceration, lesions, lumps, rash, wounds, others Allergic/Immunocompromised: denies: Difficulty Healing, Frequent Infections, Hives, Itching, others Hematologic/Lymphatic: denies: anemia, blood clots, easy bleeding, easy bruising, swollen glands, others Endocrine: denies: excessive hunger, excessive sweating, excessive thirst, excessive urination, flushing, intolerance to cold, intolerance to heat, unexplained weight gain, unexplained weight loss, others Psychiatric: denies: anxiety, bipolar disorder, depression, hopeless, panic disorder, schizophrenia, sleepless, suicidal, others All Other Systems: Reviewed and Negative Physical Exam Exam Comments Left chest wall is tender, Heart and Lungs Clear General Appearance: No Apparent Distress, Normal HEENT: Normal ENT Inspection, Pharynx Normal, TMs Normal Neck: Full Range of Motion, Non-Tender, Normal, Normal Inspection Respiratory: Chest Non-Tender, Lungs Clear, No Accessory Muscle Use, No Respiratory Distress, Normal Breath Sounds Cardiovascular: No Edema, No JVD, No Murmur, No Gallop, Normal Peripheral Pulses, Regular Rate/Rhythm Breast Exam: Deferred Gastrointestinal: No Organomegaly, Non Tender, No Pulsatile Mass, Normal Bowel Sounds, Soft Genitalia: Deferred Pelvic: Deferred Rectal: Deferred Extremities: No calf tenderness, Normal capillary refill, Normal inspection, Normal range of motion, Non-tender, No pedal edema Musculoskeletal : Apperance: Normal Neurologic: Alert, corrosion control technician II-XII nml as Tested, No Motor Deficits, Normal Affect, Normal Mood, No Sensory Deficits Cerebellar Function: Normal Reflexes: Normal Skin: Dry, Normal Color, Warm Lymphatic: No Adenopathy EKG EKG : Pulse Rate (adult): 100 [place]: Normal Cardiac Rhythm: Aflutter Block: None Hypertrophy: None ST: Normal Comments repeat ekg- aflutter rate of 99. no st elevations. no dynamic changes Was a procedure done? Was a procedure done?: No CP Differential Dx Differential Diagnosis: A-fib, A-Flutter, Angina, Anxiety / Panic Attack, Atrial Dysrhythmia, AV Block 1st Degree, AV Block 2nd Degree, AV Block 3rd Degree, Electrolyte Disorder, Heart Failure, Hyperventilation, Hypoxia, MAT, OK, Pulmonary Embolus, PVC's, Sinus Tachycardia, Torsades De Pointes, Ventricular Dysrhythmia, V-Fib, V-Tach, WPW Differential Diagnosis: CHF, Medical NonCompliance Differential Diagnosis: Angina, Aortic dissection, Chest Wall Pain, Cholelithiasis, Costochondritis, Esophageal reflux/spasm, Myocardial Infarction, Pericarditis, Pneumonia, Pneumothorax, Pulmonary Embolus X-Ray, Labs, Meds, VS Vital Signs Date Time Temp Pulse Resp B/P (MAP) Pulse Ox O2 Delivery O2 Flow Rate FiO2 03/14/24 10:00 108/62 03/14/24 08:14 98 16 96 Nasal Cannula* 4 36 03/14/24 08:14 96 Nasal Cannula* 4 36 03/14/24 08:11 98 03/14/24 07:30 98.1 97 16 94/58 (70) 95 98.1 03/14/24 07:26 99 03/14/24 07:00 99 16 96 Nasal Cannula* 4 36 03/14/24 06:20 98.5 97 15 98/58 (71) 95 98.5 03/14/24 06:11 100 03/14/24 06:10 98.6 108 20 105/64 (78) 97 Lab Test 03/14/24 07:10 03/14/24 06:19 Range/Units Troponin I High Sensitivity 3 L 3 L </=54 ng/L White Blood Count 6.7 4.4-10.8 10^3/uL Red Blood Count 4.39 L 4.5-5.90 10^6/uL Hemoglobin 10.2 L 13.5-17.5 g/dL Hematocrit 30.9 L 41.0-53.0 % Mean Corpuscular Volume 70.4 L 80.0-100.0 fL Mean Corpuscular Hemoglobin 23.2 L 28.0-32.0 pg Mean Corpuscular Hemoglobin Concent 33.0 32.0-36.0 g/dL Red Cell Distribution Width 22.3 H 11.8-14.3 % Platelet Count 104 L 140-450 10^3/uL Mean Platelet Volume 8.6 6.9-10.8 fL Neutrophils (%) (Auto) 70.8 37.0-80.0 % Lymphocytes (%) (Auto) 15.8 10.0-50.0 % Monocytes (%) (Auto) 10.3 0.0-12.0 % Eosinophils (%) (Auto) 1.8 0.0-7.0 % Basophils (%) (Auto) 1.3 0.0-2.0 % Neutrophils # (Auto) 4.8 1.6-8.6 10 ^3/uL Lymphocytes # (Auto) 1.1 0.4-5.4 10 ^3/uL Monocytes # (Auto) 0.7 0-1.3 10 ^3/uL Eosinophils # (Auto) 0.1 0-0.8 10 ^3/uL Basophils # (Auto) 0.1 0-0.2 10 ^3/uL Nucleated Red Blood Cells 0.2 % Platelet Estimate Decreased Hypochromasia (manual) Slight Anisocytosis (manual) Slight Microcytosis Slight Ovalocytes Few [place] Cells Few Sodium Level 134 L 136-145 mmol/L Potassium Level 3.8 3.5-5.1 mmol/L Chloride Level 101 98-107 mmol/L Carbon Dioxide Level 28 20-31 mmol/L Anion Gap 5 5-15 Blood Urea Nitrogen 6 L 9-23 mg/dL Creatinine 0.60 L 0.700-1.30 mg/dL Glomerular Filtration Rate Calc 103 >90 mL/min BUN/Creatinine Ratio 10.0 10.0-20.0 Serum Glucose 101 74-106 mg/dL Calcium Level 9.1 8.7-10.4 mg/dL Current Medications Medications (Trade) Dose Ordered Sig/Mario Route Start Time Stop Time Status Last Admin Nicotine (Nicoderm 21MG/ 24HR) 1 patch ONCE ONCE TD 03/14/24 10:00 03/14/24 10:01 DC 03/14/24 10:04 Time of 1ST Reevaluation: 06:50 Reevaluation 1ST: Unchanged Time of 2ND Reevaluation: 11:50 Reevaluation 2ND: Improved Patient Education/Counseling: Diagnosis, Treatment, Prognosis Family Education/Counseling: No Family Present Additional Information HI DATA VOL/COMPLEXITY:>2 External Notes- June 27 Ordered Test-Trop, EKG, Chest Portable X-Ray and Blood count independent Reviewed Results-cxr Discuss Tx/Results-medical personnel, consultants Departure 1 Departure Time of Disposition: 11:50 Impression: Primary Impression: Unstable angina Additional Impression: Atrial flutter Qualified Codes: I48.3 - Typical atrial flutter Disposition: ADMITTED INPATIENT Admit to: Tele Condition: Stable Critical Care Note Critical Care Time?: Yes (55 min-critical care time only) Critical care comment: due to the real possibility of patient's condition deteriorating, his care requires my highest attention and readiness to intervene. i assessed the patient, ordered the proper tests and treatments, reassessed him for response, formulated a plan, discussed it with medical personnel, and consultants,. total time include more than 50% face to face contact and does not include any procedures Stability Stability form required: No Heart Score Heart Score: Heart Score Response (Comments) Value History Highly Suspicious 2 EKG Repolarization Disturb 1 Age >65 2 Risk Factors >3 or Hx ASHD 2 Troponin Normal limit 0 Total 7 I personally scribed for JORDAN TAY MD ([email or web address]) on 03/14/24 at 06:53. Electronically submitted by Elver Corcoran ([email or web address]). JORDAN TAY MD Mar 14, 2024 06:53
[2024-03-14 06:57] LABS: Basophils # (auto) 0.1 10 ^3/uL (0-0.2); Monocytes # (auto) 0.7 10 ^3/uL (0-1.3); White Blood Cell 6.7 10^3/uL (4.4-10.8)
[2024-03-14 06:59] LABS: Basophils % (auto) 1.3 % (0.0-2.0); Eosinophils # (auto) 0.1 10 ^3/uL (0-0.8); Eosinophils % (auto) 1.8 % (0.0-7.0); Hematocrit 30.9 % (41.0-53.0); Hemoglobin 10.2 g/dL (13.5-17.5); Lymphocytes # (auto) 1.1 10 ^3/uL (0.4-5.4); Lymphocytes % (auto) 15.8 % (10.0-50.0); Mean Corpuscular Hemoglobin 23.2 pg (28.0-32.0); Mean Corpuscular Volume 70.4 fL (80.0-100.0); Monocytes % (auto) 10.3 % (0.0-12.0); Neutrophils # (auto) 4.8 10 ^3/uL (1.6-8.6); Neutrophils % (auto) 70.8 % (37.0-80.0); Nucleated Red Blood Cells % 0.2 %; Platelet Count (auto) 104 10^3/uL (140-450); Red Blood Cells 4.39 10^6/uL (4.5-5.90)
[2024-03-14 07:00] VITALS: PULSE 99; RESP 16; O2SAT 96
[2024-03-14 07:01] LABS: Red Cell Distribution Width 22.3 % (11.8-14.3)
--- NOTE | 2024-03-14 07:08 | DVH ---
CHEST RADIOGRAPH Indication: cp Technique: Single frontal view of the chest was obtained COMPARISON: XY CHEST XRAY 1 VIEW on DOS: 06/28/23 FINDINGS: Lines and Tubes: None Lungs: Congestion Pleura: No effusion. No pneumothorax. Cardiomediastinal contours: Cardiomegaly Bones: Unremarkable IMPRESSION: Pulmonary vascular congestion. Cardiomegaly.
--- NOTE | 2024-03-14 07:28 | ECG ---
[facility] Test Date: 2024-03-14 Test Time: 07:26:45 Pat Name: MARKUS SAAVEDRA Department: ER Room: 0290T Gender: M [employer] Picker: VERENICE : 1950 Requested By: MARIBEL YAÑEZ Order Number: [id number] Reading MD: Zeyad Lopez Measurements Intervals [place] Rate: 99 P: 0 [place]: 0 QRS: -80 QRSD: 123 T: 67 QT: 393 QTc: 505 Interpretive Statements Atrial flutter Nonspecific IVCD with LAD Consider anterior infarct Electronically Signed On 03-16-2024 8:24:58 PST by Zeyad Lopez Please click the below link to view image of tracing.
[2024-03-14 07:48] LABS: Chloride 101 mmol/L (98-107); Potassium 3.8 mmol/L (3.5-5.1); Sodium 134 mmol/L (136-145)
[2024-03-14 07:49] LABS: Anion Gap 5 (5-15); Calcium 9.1 mg/dL (8.7-10.4); Carbon Dioxide 28 mmol/L (20-31)
[2024-03-14 07:54] LABS: Blood Urea Nitrogen 6 mg/dL (9-23); Glucose 101 mg/dL (74-106)
[2024-03-14 08:03] LABS: Anisocytosis Slight; Hypochromia Slight; Ovalocytes FEW; Platelet Estimate Decreased
[2024-03-14 08:14] VITALS: PULSE 98; RESP 16; O2SAT 96
[2024-03-14] MEDS: NITROGLYCERIN 0.4 MG SL TAB SL ONE (10:00)
[2024-03-14] MEDS: NICOTINE 21MG/24 HR TOPICAL PATCH TD ONE (10:04)
[2024-03-14] MEDS ORDERED: TEMAZEPAM 15 MG CAP PO PRN (14:00)
[2024-03-14] MEDS ORDERED: IPRATROPIUM BROM 0.5 MG/2.5ML INH SOL NEB PRN (14:00)
[2024-03-14] MEDS ORDERED: HYDROcodone-ACET 5/325MG TAB PO PRN (14:00)
[2024-03-14] MEDS ORDERED: ACETAMINOPHEN 325 MG TAB PO PRN (14:00)
[2024-03-14] MEDS ORDERED: ALBUTEROL SULF 2.5 MG/0.5ML(0.5%) NEB SOLN NEB PRN (14:00)
[2024-03-14] MEDS ORDERED: NITROGLYCERIN 0.4 MG SL TAB SL PRN (14:00)
--- NOTE | 2024-03-14 14:01 | DVHHP2 ---
History of Present Illness Reason for Visit: Chest pain since last night History of Present Illness 73-year-old male with a known history of hypertension, COPD, chronic respiratory failure on home O2 at 4 L, chronic tobacco use disorder initially patient to the hospital with chest pressure which is substernal without any radiation. Patient was stated the chest pressure lasted almost 1 hour last night. Patient was brought in by paramedics EN route was given baby aspirin as well as breathing treatment. Patient currently denying any chest pain shortness of breath or any palpitations. In the ER patient was found to have atrial flutter. Patient denies any hematemesis hematochezia melena dysuria hematuria. Patient denies any known history of coronary artery disease. Cardiovascular: HTN, hyperipidemia Pulmonary: COPD PUBLIC POLICY ASSOCIATE: Periperal neuropathy Rheumatologic: Gout Past Surgical History: Cholecystectomy, Cataract Removal Family History: None Smoke: <1 pack per day ALCOHOL: none Drugs: None Review of Systems Review of Systems Twelve review of system were negative except mentioned above. Allergies: Coded Allergies: NO KNOWN ALLERGIES (Unverified , 02/20/23) Medications Current Medications Medications Dose Ordered Sig/Mario Route Start Time Stop Time Status Last Admin Dose Admin Acetaminophen/ Hydrocodone Bitart 1 tab Q4HP PRN PO 03/14/24 14:00 UNV Temazepam 15 mg QHSP PRN PO 03/14/24 14:00 UNV Ondansetron HCl 4 mg Q4HP PRN IV 03/14/24 14:00 UNV Enoxaparin Sodium 40 mg DAILY SC 03/15/24 10:00 UNV Acetaminophen 650 mg Q6HP PRN PO 03/14/24 14:00 UNV Morphine Sulfate 2 mg Q4HPRN PRN IV 03/14/24 14:00 UNV Nitroglycerin 0.4 mg Q5MINP PRN SL 03/14/24 14:00 UNV Morphine Sulfate 2 mg Q30M PRN IV 03/14/24 14:00 UNV Albuterol 2.5 mg Q4HPRN PRN NEB 03/14/24 14:00 UNV Ipratropium [place] 0.5 mg Q4HPRN PRN NEB 03/14/24 14:00 UNV Exam Vital Signs Vital Signs Date Time Temp Pulse Resp B/P (MAP) Pulse Ox O2 Delivery O2 Flow Rate FiO2 03/14/24 12:00 98.1 96 15 107/67 (80) 95 98.1 03/14/24 08:14 Nasal Cannula* 4 36 Exam HEENT pupils are reactive Neck is supple CV is S1-S2 regular rate and rhythm Respiratory while clear GI posterior bowel sound Extremity no edema PUBLIC POLICY ASSOCIATE no motor deficit. Labs/Xrays Labs Test 03/14/24 07:10 03/14/24 06:19 Range/Units Troponin I High Sensitivity 3 L </=54 ng/L White Blood Count 6.7 4.4-10.8 10^3/uL Red Blood Count 4.39 L 4.5-5.90 10^6/uL Hemoglobin 10.2 L 13.5-17.5 g/dL Hematocrit 30.9 L 41.0-53.0 % Mean Corpuscular Volume 70.4 L 80.0-100.0 fL Mean Corpuscular Hemoglobin 23.2 L 28.0-32.0 pg Mean Corpuscular Hemoglobin Concent 33.0 32.0-36.0 g/dL Red Cell Distribution Width 22.3 H 11.8-14.3 % Platelet Count 104 L 140-450 10^3/uL Mean Platelet Volume 8.6 6.9-10.8 fL Neutrophils (%) (Auto) 70.8 37.0-80.0 % Lymphocytes (%) (Auto) 15.8 10.0-50.0 % Monocytes (%) (Auto) 10.3 0.0-12.0 % Eosinophils (%) (Auto) 1.8 0.0-7.0 % Basophils (%) (Auto) 1.3 0.0-2.0 % Neutrophils # (Auto) 4.8 1.6-8.6 10 ^3/uL Lymphocytes # (Auto) 1.1 0.4-5.4 10 ^3/uL Monocytes # (Auto) 0.7 0-1.3 10 ^3/uL Eosinophils # (Auto) 0.1 0-0.8 10 ^3/uL Basophils # (Auto) 0.1 0-0.2 10 ^3/uL Nucleated Red Blood Cells 0.2 % Platelet Estimate Decreased Hypochromasia (manual) Slight Anisocytosis (manual) Slight Microcytosis Slight Ovalocytes Few [place] Cells Few Sodium Level 134 L 136-145 mmol/L Potassium Level 3.8 3.5-5.1 mmol/L Chloride Level 101 98-107 mmol/L Carbon Dioxide Level 28 20-31 mmol/L Anion Gap 5 5-15 Blood Urea Nitrogen 6 L 9-23 mg/dL Creatinine 0.60 L 0.700-1.30 mg/dL Glomerular Filtration Rate Calc 103 >90 mL/min BUN/Creatinine Ratio 10.0 10.0-20.0 Serum Glucose 101 74-106 mg/dL Calcium Level 9.1 8.7-10.4 mg/dL Assessment/Plan Assessment/Plan 73-year-old male with a known history of chronic respiratory failure on home O2, COPD, history of gout, peripheral neuropathy, hypertension initially plan with the hospital with chest pressure found to have 1. Chest pain rule out acute PA 2. Atrial flutter 3. Hypertension 4. Chronic respiratory failure on home O2 5. COPD currently not in exacerbation 5. Peripheral neuropathy 6. Gout -admit to telemetry, check troponins q.8 hours x3, 2D echo, cardiology consultation Resume home medications. Plan discussed with: Patient My Orders Orders - NICK GARRIDO MD Procedure Category Date Status Time Admit ADMIT 03/14/24 Transmitted 13:50 Code Status CODE 03/14/24 Transmitted 13:50 2 Gm Sodium Diet DIET 03/14/24 Transmitted Dinner Hydrocodone-Acet PHA 03/14/24 Logged 5/325mg Tab (Sallis 14:00 Temazepam (Restoril) PHA 03/14/24 Logged 14:00 Ondansetron Hcl PHA 03/14/24 Logged (Zofran) 14:00 Enoxaparin Sodium PHA 03/15/24 Logged (Lovenox) 10:00 Complete Blood Count LAB 03/15/24 Verified 04:00 Comprehensive LAB 03/15/24 Verified Metabolic Panel 04:00 Echo 2d Mode Cardiac US 03/14/24 Logged DOP 13:50 Acetaminophen Tablet PHA 03/14/24 Logged (Tylenol Tablet) 14:00 Morphine Sulfate PHA 03/14/24 Logged Injection 14:00 Nitroglycerin PHA 03/14/24 Logged Sublingual (Ntrostat 14:00 Morphine Sulfate PHA 03/14/24 Transmitted Injection 14:00 Stat Ekg For Chest SHAWNA 03/14/24 In Process Pain 13:50 Notify Of Changes SHAWNA 03/14/24 In Process From Base 13:50 Strand Galvanizer For SHAWNA 03/14/24 In Process 24 Hours 13:50 Emergency Dysrhythmia SHAWNA 03/14/24 In Process Protocol 13:50 Rhythm Strips Once [facility] 03/14/24 In Process Every Shift 13:50 Oxygen By Nasal RT 03/14/24 Transmitted Cannula 13:50 * Cardiology Consult CONS 03/14/24 Transmitted 13:50 Npo After Midnight DIET 03/14/24 Transmitted Dinner Albuterol Medneb PHA 03/14/24 Transmitted (Ventolin Medneb) 14:00 Ipratropium Medneb PHA 03/14/24 Transmitted (Atrovent Medneb) 14:00 Pantoprazole Tablet PHA 03/15/24 Transmitted (Protonix Tablet) 10:00 Pregabalin Capsule PHA 03/14/24 Transmitted (Lyrica Capsule) 22:00 Propranolol Hcl PHA 03/14/24 Transmitted Tablet (Inderal 14:00 (Nf) Allopurinol PHA 03/15/24 Transmitted 10:00 Date of Service: Mar 14, 2024 Billing Provider: NICK GARRIDO MD Common Visit Codes: NOT BILLABLE NICK GARRIDO MD Mar 14, 2024 14:01
[2024-03-14 14:45] VITALS: BP 114/74; PULSE 90; RESP 16; TEMP 98.1; O2SAT 97
[2024-03-14] MEDS: MORPHINE SULFATE INJ 2 MG/ml SYRG ONE (14:48)
[2024-03-14] MEDS: ONDANSETRON HCL 4 MG/2 ML VIAL ONE (14:48)
[2024-03-14] MEDS: PROPRANOLOL HCL 20 MG TAB PO SCH ×2 (14:58→21:47)
[2024-03-14] MEDS: MORPHINE SULFATE INJ 2 MG/ml SYRG IV PRN ×2 (15:02→21:50)
[2024-03-14] MEDS: ONDANSETRON HCL 4 MG/2 ML VIAL IV PRN (15:02)
[2024-03-14] MEDS: PROPRANOLOL HCL 20 MG TAB ONE (15:20)
--- NOTE | 2024-03-14 19:18 | DVHSR ---
APPROVED REPORT EXAM: LIMITED Two-dimensional and M-mode echocardiogram with Doppler and color Doppler. Blood Pressure: 107/67 mmHg INDICATION Unstable angina RISK FACTORS Obesity: Height: 5' 10", Weight: 250 DIMENSIONS LVDd6.3 (3.8-5.7cm)LA (2D)5.2 (1.9-4.0cm)Aortic Root3.9 (2.0-3.7cm) LVDs4.9 (2.5-4.0cm)LA (MM) (1.9-4.0cm)Aortic Cusp Exc1.6 (1.5-2.0cm) EF (%) 44.0 (55-70%)Rt. Atrium5.2 (1.9-4.0cm)Asc. Aorta cm IVSd1.3 (0.7-1.1cm)RV (D) (1.8-2.4cm) PWd1.3 (0.7-1.1cm) Mitral Valve MitralMitral Stenosis E wave1.20m/sMV Mean GR.mmHg E/A ratio0.02D MVAcm2 Aortic Valve Aortic ValveAortic Stenosis V10.90m/Guillermina Mean GR.9mmHg V21.90m/Guillermina Peak GR.15mmHg LVOT Diameter2.5 (1.8-2.4cm)Doppler AVA2.32cm2 Tricuspid Valve TR Velocity2.40m/s [id number] Other Information Quality : Technically LimitedRhythm : Technically limited study due to body habitus, patient sensitive to pressure. Conclusion MODERATELY DILATED LV GLOBAL LV HYPOKINESIS LV EJECTION FRACTION IS 40% HEAVILY CALCIFIED POSTERIOR BELLA LEAFLET AND ANNULUS MODERATELY DILATED LA MODERATELY CALCIFIED AORTIC LEAFLETS SLIGHTLY DILATED RV BUT NORMAL FUNCTION NO EFFUSION
[2024-03-14 20:00] VITALS: PULSE 111; PULSE 80; RESP 20; O2SAT 94
[2024-03-14 20:59] VITALS: BP 116/73; PULSE 114; RESP 20; TEMP 98; O2SAT 96
[2024-03-14] MEDS: PREGABALIN CAPSULE 75 MG CAP PO SCH (21:46)
[2024-03-14] MEDS ORDERED: PREGABALIN CAPSULE 75 MG CAP PO SCH (22:00)
[2024-03-14 22:19] VITALS: O2SAT 96
[2024-03-15] VITALS (12 sets, daily range): BP systolic 90–123; BP diastolic 57–71; PULSE 80–115; RESP 16–20; TEMP 97.7–98.3; O2SAT 79–97
[2024-03-15] MEDS: MORPHINE SULFATE INJ 2 MG/ml SYRG IV PRN ×2 (05:41→15:42)
[2024-03-15 07:00] LABS: Basophils # (auto) 0 10 ^3/uL (0-0.2); Basophils % (auto) 0.8 % (0.0-2.0); Eosinophils # (auto) 0.1 10 ^3/uL (0-0.8); Monocytes # (auto) 0.5 10 ^3/uL (0-1.3); Red Blood Cells 4.33 10^6/uL (4.5-5.90); White Blood Cell 5.5 10^3/uL (4.4-10.8)
[2024-03-15 07:04] LABS: Eosinophils % (auto) 2.1 % (0.0-7.0); Hematocrit 31.3 % (41.0-53.0); Hemoglobin 10.3 g/dL (13.5-17.5); Lymphocytes % (auto) 18.5 % (10.0-50.0); Mean Corpuscular Hemoglobin 23.7 pg (28.0-32.0); Mean Corpuscular Hgb Conc. 32.7 g/dL (32.0-36.0); Mean Corpuscular Volume 72.3 fL (80.0-100.0); Neutrophils # (auto) 3.8 10 ^3/uL (1.6-8.6); Neutrophils % (auto) 69.6 % (37.0-80.0); Nucleated Red Blood Cells % 0.4 %; Platelet Count (auto) 107 10^3/uL (140-450); Red Cell Distribution Width 22.5 % (11.8-14.3)
[2024-03-15 07:16] LABS: Alanine Aminotransferase 12 U/L (7-40); Alkaline Phosphatase 99 U/L (46-116); Anion Gap 5 (5-15); BUN/Creatinine Ratio 8.6 (10.0-20.0); Blood Urea Nitrogen 5 mg/dL (9-23); Calcium 9.5 mg/dL (8.7-10.4); Carbon Dioxide 29 mmol/L (20-31); Chloride 104 mmol/L (98-107); Glucose 88 mg/dL (74-106); Potassium 4.2 mmol/L (3.5-5.1); Sodium 138 mmol/L (136-145)
[2024-03-15 07:17] LABS: Albumin 3.6 g/dL (3.2-4.8); Aspartate Aminotransferase 31 U/L (13-40); Bilirubin, Total 2.2 mg/dL (0.2-1.0)
[2024-03-15 07:18] LABS: Total Protein 5.8 g/dL (5.7-8.2)
[2024-03-15] MEDS ORDERED: TEMAZEPAM 15 MG CAP PO PRN (09:00)
[2024-03-15] MEDS ORDERED: ONDANSETRON HCL 4 MG/2 ML VIAL IV PRN (09:00)
[2024-03-15] MEDS ORDERED: NITROGLYCERIN 0.4 MG SL TAB SL PRN (09:15)
[2024-03-15] MEDS ORDERED: MORPHINE SULFATE INJ 2 MG/ml SYRG IV PRN (09:15)
[2024-03-15] MEDS ORDERED: ACETAMINOPHEN 325 MG TAB PO PRN (09:15)
[2024-03-15] MEDS ORDERED: ENOXAPARIN SOD 40 MG/0.4 ML SYRINGE SC SCH (10:00)
[2024-03-15] MEDS: ENOXAPARIN SOD 40 MG/0.4 ML SYRINGE SC SCH (10:00)
[2024-03-15] MEDS ORDERED: PANTOPRAZOLE 40 MG TAB PO SCH (10:00)
[2024-03-15] MEDS ORDERED: ALLOPURINOL 100 MG TAB PO SCH (10:00)
[2024-03-15] MEDS: ALBUTEROL SULF 2.5 MG/0.5ML(0.5%) NEB SOLN NEB PRN (10:25)
[2024-03-15] MEDS: IPRATROPIUM BROM 0.5 MG/2.5ML INH SOL NEB PRN (10:26)
[2024-03-15] MEDS: PANTOPRAZOLE 40 MG TAB PO SCH (10:56)
[2024-03-15] MEDS: ALLOPURINOL 100 MG TAB PO SCH (10:56)
[2024-03-15] MEDS: HYDROcodone-ACET 5/325MG TAB PO PRN (10:57)
[2024-03-15] MEDS: NICOTINE 14 MG/24HR TOPICAL PATCH TD ONE (12:59)
--- NOTE | 2024-03-15 13:52 | DVHINCON2 ---
HISTORY OF PRESENT ILLNESS: A 73-year-old gentleman with a history of hyperlipidemia and hypertension. He is single, . He lives alone. He has had problems with his right foot and he has an open wound for the last year. He is pending further evaluation and scheduled for surgery when he came in complaining of progressive shortness of breath and chest pain. He was noted to have wheezing and was subsequently brought in for further evaluation and treatment. He does not recall if he had an outpatient test or has been worked up for cardiology. He is somewhat confused and does not recall a lot of what has happened in the past. PAST MEDICAL HISTORY: He has a history of tobacco abuse, hypertension. Gastric reflux. Hyperlipidemia. Poor historian. He had a history of COPD as well. History of eye surgery. FAMILY HISTORY: Noncontributory. SOCIAL HISTORY: He is a smoker. REVIEW OF SYSTEMS: CONSTITUTIONAL: From a constitutional standpoint, otherwise negative. ENT: Negative. CARDIAC AND RESPIRATORY: Significant for shortness of breath, dyspnea and chest pain. GASTROINTESTINAL AND GENITOURINARY: Negative. MUSCULOSKELETAL: As noted above with a history of edema and ulceration in his right foot with an open wound. HEMATOLOGIC, ONCOLOGIC, ENDOCRINE, PSYCHIATRIC: Negative. PHYSICAL EXAMINATION: GENERAL: He is awake and responsive, in no acute distress. VITAL SIGNS: His blood pressure is 111/60, respiratory rate 16, pulse of 92. HEENT: Otherwise, unremarkable. Orally well hydrated. Trachea central. NECK: Supple. Thyroid is not palpable. There is no jugular venous distention, no bruits. LUNGS: Reveal good air entry. No rales or rhonchi. HEART: Reveals regular S1, S2. ABDOMEN: A globular abdomen. EXTREMITIES: Reveal adequate perfusion, right foot bandaged. Lesion not examined. Mild edema. NEUROLOGIC: Intact. Diminished proprioception. LABORATORY DATA: His WBC count is 5000, hemoglobin and hematocrit of 10 and 31 respectively. Chemistry panel shows a BUN and creatinine of 5 and 0.58 with normal chemistry. Total bilirubin is 2.2. EKG shows atrial fibrillation with a rapid ventricular response, currently controlled. IMPRESSION: Atrial dysrhythmias. Chest pain, rule out coronary artery disease. Peripheral vascular disease likely with an ulceration in his right foot. Increased body mass index. Possible congestive heart failure. Rule out left ventricular dysfunction. RECOMMENDATIONS: I will obtain an echocardiogram and a Lexiscan. Arterial Doppler of lower extremities. Consider angiographic evaluation if need be. We will await the above-mentioned tests. Zeyad Lopez MD GAP/VIS TID: [id number] RECEIPT: [id number]
[2024-03-15] MEDS ORDERED: PROPRANOLOL HCL 20 MG TAB PO SCH (14:00)
--- NOTE | 2024-03-15 14:40 | DVH ---
Bilateral Lower Extremity Arterial Duplex Date: 03/15/2024 01:52 PM Clinical History: open wound, ulcer Comparison: None Technique: Duplex Doppler evaluation including color Doppler and spectral/pulsed waveform analysis of the lower extremity arteries was performed. Findings: RIGHT Peak systolic velocities are as follows: COMPUTER FORWARDING SYSTEM MARKUP CLERK 106 cm/s Deep femoral 78 cm/s SFA proximal 83 cm/s SFA mid-portion 86 cm/s SFA distal 113 cm/s Popliteal 96 cm/s Posterior tibial 93 cm/s Dorsalis pedis 105 cm/s The waveforms are triphasic with diastolic flow. LEFT Peak systolic velocities are as follows: COMPUTER FORWARDING SYSTEM MARKUP CLERK 100 cm/s Deep femoral 74 cm/s SFA proximal 87 cm/s SFA mid-portion 55 cm/s SFA distal 69 cm/s Popliteal 77 cm/s Posterior tibial 87 cm/s Dorsalis pedis 96 cm/s The waveforms are triphasic with diastolic flow. REFERENCE VALUES: Normal velocity ranges (in cm/sec) are as follows: COMPUTER FORWARDING SYSTEM MARKUP CLERK 95-140, SFA 75-105, popliteal 54-84, tibial 4 1-81 cm/sec. Stenosis categories: 1.5-2.0 x normal velocity = 30-49%, 2.0-4.0 x normal velocity = 50 -75%, >4.0 x normal velocity = >75%. IMPRESSION: 1. There is no evidence for peripheral vascular insufficiency in the right lower extremity. 2. There is no evidence for peripheral vascular insufficiency in the left lower extremity. 3. No significant focal stenosis is identified. 4. END IMPRESSION: HS:Y
[2024-03-15] MEDS: PROPRANOLOL HCL 20 MG TAB PO SCH (15:41)
--- NOTE | 2024-03-15 16:42 | DVHPN2 ---
Subjective Overnight events noted. Patient is currently scheduled for Lexiscan test. Reviewed: Care Plan Changes from previous H/P or p: No Changes Objective Vitals Vital Signs Date Time Temp Pulse Resp B/P (MAP) Pulse Ox O2 Delivery O2 Flow Rate FiO2 03/15/24 16:33 97.7 109 17 123/71 (88) 79 97.7 03/15/24 10:31 Nasal Cannula 4.0 03/15/24 10:31 36 Intake/Output Intake and Output 03/15/24 07:00 Intake Total 400 ml Balance 400 ml Intake Oral 400 ml # Voids 4 Exam HEENT pupils are reactive Neck is supple CV is S1-S2 regular rate and rhythm -three by clear GI posterior portion Extremity no edema [employer] no motor deficit Medications Current Medications Medications Dose Ordered Sig/Mario Route Start Time Stop Time Status Last Admin Dose Admin Pregabalin 75 mg BID PO 03/14/24 22:00 03/15/24 10:56 75 MG Acetaminophen/ Hydrocodone Bitart 1 tab Q4HP PRN PO 03/15/24 09:00 03/15/24 10:57 1 TAB Temazepam 15 mg QHSP PRN PO 03/15/24 09:00 Ondansetron HCl 4 mg Q4HP PRN IV 03/15/24 09:00 Enoxaparin Sodium 40 mg DAILY SC 03/15/24 10:00 Acetaminophen 650 mg Q6HP PRN PO 03/15/24 09:15 Nitroglycerin 0.4 mg Q5MINP PRN SL 03/15/24 09:15 Morphine Sulfate 2 mg Q30M PRN IV 03/15/24 09:15 Albuterol 2.5 mg Q4HPRN PRN NEB 03/15/24 09:15 03/15/24 10:25 2.5 MG Ipratropium [place] 0.5 mg Q4HPRN PRN NEB 03/15/24 09:15 03/15/24 10:26 0.5 MG Pantoprazole Sodium 40 mg DAILY PO 03/15/24 10:00 03/15/24 10:56 40 MG Allopurinol 300 mg DAILY PO 03/15/24 10:00 03/15/24 10:56 300 MG Propranolol HCl 20 mg TID PO 03/15/24 14:00 03/15/24 15:41 20 MG Morphine Sulfate 2 mg Q4HPRN PRN IV 03/15/24 09:15 03/15/24 15:42 2 MG Nicotine 1 patch DAILY TD 03/16/24 10:00 Laboratory Results Laboratory Tests 03/15/24 05:44 Chemistry Test 03/15/24 05:44 Albumin 3.6 g/dL (3.2-4.8) Calcium Level 9.5 mg/dL (8.7-10.4) Total Protein 5.8 g/dL (5.7-8.2) LFT Test 03/15/24 05:44 Alanine Aminotransferase (ALT) 12 U/L (7-40) Alkaline Phosphatase 99 U/L (46-116) Aspartate Amino Transferase (AST) 31 U/L (13-40) Total Bilirubin 2.2 mg/dL (0.2-1.0) H Assessment/Plan Assessment/Plan 73-year-old male with a known history of chronic respiratory failure on home O2, COPD, history of gout, peripheral neuropathy, hypertension initially plan with the hospital with chest pressure found to have 1. Chest pain rule out acute [place] 2. Atrial flutter 3. Hypertension 4. Chronic respiratory failure on home O2 5. COPD currently not in exacerbation 5. Peripheral neuropathy 6. Gout -Lexiscan stress test, 2D echo, cardiology consultation Resume home medications. Plan discussed with: Patient My Orders Orders - NICK GARRIDO MD Procedure Category Date Status Time * Wound Consult CONS 03/14/24 Transmitted Pregabalin Capsule PHA 03/14/24 In Process (Lyrica Capsule) 22:00 Hydrocodone-Acet PHA 03/15/24 In Process 5/325mg Tab ([place] 09:00 Temazepam (Restoril) PHA 03/15/24 In Process 09:00 Ondansetron Hcl PHA 03/15/24 In Process (Zofran) 09:00 Enoxaparin Sodium PHA 03/15/24 In Process (Lovenox) 10:00 Acetaminophen Tablet PHA 03/15/24 In Process (Tylenol Tablet) 09:15 Nitroglycerin PHA 03/15/24 In Process Sublingual (Ntrostat 09:15 Morphine Sulfate PHA 03/15/24 In Process Injection 09:15 Albuterol Medneb PHA 03/15/24 In Process (Ventolin Medneb) 09:15 Ipratropium Medneb PHA 03/15/24 In Process (Atrovent Medneb) 09:15 Pantoprazole Tablet PHA 03/15/24 In Process (Protonix Tablet) 10:00 Allopurinol Tablet PHA 03/15/24 In Process (Zyloprim Tablet) 10:00 Propranolol Hcl PHA 03/15/24 In Process Tablet (Inderal 14:00 Morphine Sulfate PHA 03/15/24 In Process Injection 09:15 Wound Culture W/ Gs NADER 03/15/24 In Process 10:09 Nicotine 14mg/24hr PHA 03/16/24 In Process (Nicoderm 14mg/24hr) 10:00 Cleanse Wound With SHAWNA 03/15/24 In Process Wound Clean 09:27 * Dietary Consult CONS 03/15/24 Transmitted 14:18 Cardiac DIET 03/15/24 Transmitted Diet-2gna,Lofat,Lochol Dinner Npo After Midnight DIET 03/15/24 Transmitted Dinner Date of Service: Mar 15, 2024 Billing Provider: NICK GARRIDO MD Common Visit Codes: NOT BILLABLE NICK GARRIDO MD Mar 15, 2024 16:42
[2024-03-16] VITALS (7 sets, daily range): BP systolic 93–111; BP diastolic 49–73; PULSE 80–114; RESP 17–19; TEMP 97.7–98.3; O2SAT 95–99
[2024-03-16] MEDS: REGADENOSON 0.4 MG/5 ML SYRG IV ONE ×2 (08:24→08:26)
[2024-03-16] MEDS: NICOTINE 14 MG/24HR TOPICAL PATCH TD SCH (09:51)
--- NOTE | 2024-03-16 14:10 | DVHSR ---
APPROVED REPORT Exam: Nuclear Stress Test BMI: 0 Stress Test Details HR Max Heart Rate (APMHR): 148.598368 bpm Target HR (85% APMHR): 125.727349 bpm BP ECG Stress ECG Conclusion Resting images shows near homogeneous uptake of radioactive tracer throughout the myocardium without evidence of myocardial infarction. Stress images shows near homogeneous uptake of radioactive tracer throughout the myocardium without e vidence of myocardial ischemia. Severely reduced left ventricular systolic function at 39%. Impression: Likely ischemic cardiomyopathy with a reduced ejection fraction, low risk study for isch emia NM EXAM: Myocardial Perfusion REST/STRESS Imaging Protocol: Rest Tc-99m/Stress Tc-99m 1 day Resting Data Rest SPECT myocardial perfusion imaging was performed in supine position 60 minutes following the int ravenous injection of 14.4 mCi of Tc-99m Sestamibi. Time of rest injection: 0700 Time of rest imagin Administration Route: IV Administration Site: Left Arm Pharmacologic Stress Pharmacologic stress test was performed by injecting Regadenoson 0.4 mg IV push followed by the intra venous injection of 37 mCi of Tc-99m Sestamibi. Time of stress injection: 08 Time of stress imagin Administration Route: IV Administration Site: Left Arm Gated Stress SPECT was performed 60 minutes after stress injection. The images were gated to evaluate regional wall motion and calculate left ventricular ejection fracti on. Stress only was performed in the Supine position. Nuclear Conclusion ECG Findings: negative for ischemia Clinical Findings: negative for ischemia Nuclear Findings: negative for ischemia Exercise Capacity: not assessed Left Ventricular Function: abnormal Risk Study: low Resting images shows near homogeneous uptake of radioactive tracer throughout the myocardium without evidence of myocardial infarction. Stress images shows near homogeneous uptake of radioactive tracer throughout the myocardium without e vidence of myocardial ischemia. Severely reduced left ventricular systolic function at 39%. Impression: Likely ischemic cardiomyopathy with a reduced ejection fraction, low risk study for isch emia
--- NOTE | 2024-03-16 15:52 | DVHDS2 ---
Discharge Summary Date of Admission Mar 14, 2024 at 13:50 Date of Discharge: Mar 16, 2024 Labs/Diagnostic Data: Laboratory Results Test 03/15/24 05:44 03/14/24 07:10 03/14/24 06:19 White Blood Count 5.5 10^3/uL (4.4-10.8) Red Blood Count 4.33 10^6/uL (4.5-5.90) Hemoglobin 10.3 g/dL (13.5-17.5) Hematocrit 31.3 % (41.0-53.0) Mean Corpuscular Volume 72.3 fL (80.0-100.0) Mean Corpuscular Hemoglobin 23.7 pg (28.0-32.0) Mean Corpuscular Hemoglobin Concent 32.7 g/dL (32.0-36.0) Red Cell Distribution Width 22.5 % (11.8-14.3) Platelet Count 107 10^3/uL (140-450) Mean Platelet Volume 8.3 fL (6.9-10.8) Neutrophils (%) (Auto) 69.6 % (37.0-80.0) Lymphocytes (%) (Auto) 18.5 % (10.0-50.0) Monocytes (%) (Auto) 9.0 % (0.0-12.0) Eosinophils (%) (Auto) 2.1 % (0.0-7.0) Basophils (%) (Auto) 0.8 % (0.0-2.0) Neutrophils # (Auto) 3.8 10 ^3/uL (1.6-8.6) Lymphocytes # (Auto) 1.0 10 ^3/uL (0.4-5.4) Monocytes # (Auto) 0.5 10 ^3/uL (0-1.3) Eosinophils # (Auto) 0.1 10 ^3/uL (0-0.8) Basophils # (Auto) 0 10 ^3/uL (0-0.2) Nucleated Red Blood Cells 0.4 % Sodium Level 138 mmol/L (136-145) Potassium Level 4.2 mmol/L (3.5-5.1) Chloride Level 104 mmol/L (98-107) Carbon Dioxide Level 29 mmol/L (20-31) Anion Gap 5 (5-15) Blood Urea Nitrogen 5 mg/dL (9-23) Creatinine 0.58 mg/dL (0.700-1.30) Glomerular Filtration Rate Calc 104 mL/min (>90) BUN/Creatinine Ratio 8.6 (10.0-20.0) Serum Glucose 88 mg/dL (74-106) Calcium Level 9.5 mg/dL (8.7-10.4) Total Bilirubin 2.2 mg/dL (0.2-1.0) Aspartate Amino Transferase (AST) 31 U/L (13-40) Alanine Aminotransferase (ALT) 12 U/L (7-40) Alkaline Phosphatase 99 U/L (46-116) Total Protein 5.8 g/dL (5.7-8.2) Albumin 3.6 g/dL (3.2-4.8) Troponin I High Sensitivity 3 ng/L (</=54) Platelet Estimate Decreased Hypochromasia (manual) Slight Anisocytosis (manual) Slight Microcytosis Slight Ovalocytes Few [place] Cells Few Other Laboratory Tests 03/15/24 05:44 Brief Hx & Hospital Course: 73-year-old male with a known history of chronic respiratory failure on home O2, COPD, history of gout, peripheral neuropathy, hypertension initially plan with the hospital with chest pressure f, admitted for rule out [place]. Patient was troponins were negative. Patient was a underwent stress test which shows no reversible ischemia. Patient is currently cleared by Cardiology to be discharged. Patient does have known history of COPD currently not in exacerbation. The patient does have chronic respiratory failure on home O2. Patient was being discharged under stable condition. Nicotine cessation counseling has been discussed with the patient who understand verbalized understanding and agreeable to plan. Condition at Discharge: Stable Final Diagnosis/Problems List Discharge Disposition: Home SNF Discharge Will this Physician continue t: No Discharge Instruct/Medications Diet: Cardiac 2g Na,low cholest Activity: No Restrictions, As Tolerated Follow Up/Referral: With the PCP in 1-2 weeks Medications: Resume home medications Discharge Statement: "Patient was advised to return to the ER or call 911 if any headaches, dizziness, shortness of breath, chest pain, abdominal pain, bleeding, fevers, or worsening of medical condition. Patient was counseled about treatment plan, medications, possible side effects, patientverbalized understanding. All questions were answered to the best of my ability. This discharge took greater then 30 minutes in planning, reviewing documentation, counseling the patient, and discussing with other team members." ASSESSMENT ASSESSMENT Assessment 73-year-old male with a known history of chronic respiratory failure on home O2, COPD, history of gout, peripheral neuropathy, hypertension initially plan with the hospital with chest pressure found to have 1. Chest pain rule out acute [place] 2. Atrial flutter 3. Hypertension 4. Chronic respiratory failure on home O2 5. COPD currently not in exacerbation 5. Peripheral neuropathy 6. Gout -admit to telemetry, [facility] Date of Service: Mar 16, 2024 Billing Provider: NICK GARRIDO MD Common Visit Codes: NOT BILLABLE NICK GARRIDO MD Mar 16, 2024 15:52
== END 2024-03-16 17:50 | disposition home or self-care (01) | DRG 189 ==
LOC: ER 06:08 → EDBD 06:08 → TELE 13:50 → ER 13:54 → TELE-WESTW 18:01
PROVIDERS: ADMIT Internal Medicine; ATTEND Internal Medicine
DX: J96.21 Acute and chronic respiratory failure with hypoxia (principal); I48.92 Unspecified atrial flutter; I25.10 Atherosclerotic heart disease of native coronary artery without angina pectoris; J44.9 Chronic obstructive pulmonary disease, unspecified; I10 Essential (primary) hypertension; G62.9 Polyneuropathy, unspecified; M10.9 Gout, unspecified; F17.210 Nicotine dependence, cigarettes, uncomplicated; E78.5 Hyperlipidemia, unspecified; K21.9 Gastro-esophageal reflux disease without esophagitis; I73.9 Peripheral vascular disease, unspecified; Z90.49 Acquired absence of other specified parts of digestive tract; Z99.81 Dependence on supplemental oxygen
CPT/HCPCS: 36415; 71045; 78452; 80048; 80053; 84484; 85025; 87205; 93005; 93017; 93306; 93925; 94640; 99291; G0378; J2405

== ENCOUNTER → 2024-06-04 | Day surgery (SDC) | payer BC ==
[~2024-06-04] VITALS: Ht 177.8 cm; Wt 111.1 kg
[~2024-06-04] MED LIST changes: +BUPIVACAINE HCL 0.25% P/F 10 ML VIAL ONE; +FURO1TAB33 PO; +HYDR25TA4 PO; +HYDROmorphone HCL 2 MG/ML VL/or syr IV PRN; -IPRA0.00 IN; +KETAMINE 50mg/ML 1ml syringe ONE; +LIDOCAINE 1% HCL (LOCAL ANESTH.) INJ 20ML MDV ONE; +MIDAZOLAM HCL 2MG/2ML 2ml VIAL (1mg/ml) ONE; -PREG75CA PO; +PROPOFOL 10 MG/ML 20 ML IV ONE; +TRAM50TA2 PO; +ceFAZolin 1GM VL ONE; +fentaNYL CITRATE 100 MCG/2 ML VL ONE
[2024-06-04] MEDS: ceFAZolin 2 GM/D5W100ml 100 ML IV ONE (07:28)
[2024-06-04 08:21] VITALS: TEMP 98.7; O2SAT 96
--- NOTE | 2024-06-04 08:34 | POSTOP ---
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 Parks Blood Loss(fluid mgmt) about 3 cc Tourniquet Time 28 minutes Surgeon Nayan Gonsalez Complications & Mgmt None Date 06/04/24 Time 08:33 NAYAN GONSALEZ DPM Jun 04, 2024 08:34
[2024-06-04 09:06] VITALS: BP 111/57; PULSE 92; RESP 12; O2SAT 95
--- NOTE | 2024-06-05 11:04 | ECG ---
[facility] Test Date: 2024-06-04 Test Time: 07:14:44 Pat Name: MARKUS SAAVEDRA Department: Room: Gender: M Teller: VELAZQUEZ : 1950 Requested By: BRIAN SIDHU Order Number: [id number] Reading MD: Zeyad Lopez Measurements Intervals [place] Rate: 95 P: 0 AK: 0 QRS: -55 QRSD: 114 T: 42 QT: 374 QTc: 469 Interpretive Statements Atrial flutter with variable AV block Left anterior fascicular block Nonspecific ST abnormality Electronically Signed On 06-07-2024 8:12:30 PST by Zeyad Lopez Please click the below link to view image of tracing.
== END | disposition home or self-care (01) ==
LOC: SUR 06:13
PROVIDERS: ATTEND Podiatrist Foot & Ankle Surgery
DX: L60.0 Ingrowing nail (principal); L97.519 Non-pressure chronic ulcer of other part of right foot with unspecified severity; M86.9 Osteomyelitis, unspecified; I44.4 Left anterior fascicular block; I48.92 Unspecified atrial flutter; L89.892 Pressure ulcer of other site, stage 2; G90.09 Other idiopathic peripheral autonomic neuropathy; I42.0 Dilated cardiomyopathy; I11.0 Hypertensive heart disease with heart failure; I50.9 Heart failure, unspecified; I25.10 Atherosclerotic heart disease of native coronary artery without angina pectoris; I25.2 Old myocardial infarction; J44.9 Chronic obstructive pulmonary disease, unspecified; I48.91 Unspecified atrial fibrillation; K21.9 Gastro-esophageal reflux disease without esophagitis; Z79.899 Other long term (current) drug therapy; Z79.84 Long term (current) use of oral hypoglycemic drugs; Z98.890 Other specified postprocedural states
CPT/HCPCS: 11750; 28820; 87070; 87075; 87205; 93005; J0690; J2003; J2250; J2704; J3010; J3490